=== PATIENT | female | born 1960 | race Caucasian/White ===

== ENCOUNTER 2020-10-14 07:05 | Outpatient (NON) | payer MEDICAID, SELFPAY ==
[2020-10-14 19:11] LABS: SARS-CoV-2 RNA PCR Positive
== END 2020-10-14 07:06 ==
LOC: ANHCOVIDDT 07:20
PROVIDERS: Visit Provider Internal Medicine Critical Care Medicine
DX: U07.1 COVID-19 (principal)
CPT/HCPCS: 87635; C9803; U0003

== ENCOUNTER 2020-11-22 10:25 | Outpatient (CLI) | payer OTHER, MEDICAID, SELFPAY ==
[2020-11-22 11:13] LABS: Cholesterol 197 mg/dL (0-200); HDL Direct 42 mg/dL; Triglycerides 159 mg/dL (<150)
[2020-11-22 11:24] LABS: LDL Cholesterol Direct 118 mg/dL
[2020-11-22 11:25] LABS: Creatinine Urine 147.2 mg/dL
[2020-11-22 12:13] LABS: MALB Creatinine Ratio 723.5 mg/g (0-30)
== END 2020-11-22 10:26 | disposition home or self-care (01) ==
PROVIDERS: PCP Family Medicine; Visit Provider Internal Medicine Endocrinology, Diabetes & Metabolism
DX: E11.29 Type 2 diabetes mellitus with other diabetic kidney complication (principal); E78.5 Hyperlipidemia, unspecified; E88.81 Metabolic syndrome and other insulin resistance; R80.9 Proteinuria, unspecified
CPT/HCPCS: 36415; 80061; 82043

== ENCOUNTER 2021-01-04 09:54 | Emergency (ER) | payer BC, SELFPAY ==
--- NOTE | ~2021-01-04 | CT_ITS ---
EXAMINATION: CT abdomen pelvis w con EXAM DATE: 01/04/2021 11:08 INDICATION: Right lower quadrant intermittent pain. TECHNIQUE: Spiral CT of the abdomen and pelvis was performed following intravenous injection of 100 m L Omnipaque 350. Axial, coronal and sagittal images were reviewed. The dose-length product (DLP) fo r this examination was 1353.53 mGy-cm. The exposure was tailored according to patient size (auto mA exposure control), and iterative reconstruction (ASIR) was used as additional dose reduction techniqu e. There is no prior study for comparison. FINDINGS: Bilateral adrenal gland nodularity, more on the left side which probably has several lesion s probably adenomas correlate with a prior noncontrast CT. Splenic granulomas. Liver and pancreas are unremarkable. There are cholecystectomy clips. Portal and splenic veins are patent. Kidneys enhan ce symmetrically. There is no hydronephrosis. The uterus is not identified and has likely been lisset gically resected. The bladder is undistended at time of imaging. There is no retroperitoneal or pel angela lymphadenopathy. There is mild scattered arteriosclerotic disease. Suspect anterior abdominal w all mesh, hernia repair. The appendix is normal. The stomach and small bowel are unremarkable. There is expected amount of c olonic stool. No free intraperitoneal gas. The heart is normal in size. There are no pericardial or pleural effusions. Left lower lobe calcified granuloma. There are no osteoblastic or osteolytic lesions identified. There is right hip replacement. Bilateral sacral osteoarthritis. Lumbar spondylo sis. IMPRESSION: 1. No acute intra-abdominal findings. 2. Adrenal adenomas or hyperplasia. 3. Surgical changes. Reviewed, dictated and finalized at location B. [employer]
--- NOTE | 2021-01-04 10:14 | ED.ABDPAIN ---
HPI - Abdominal Pain General Chief Complaint: Abdominal Pain Stated Complaint: Right Flank Pain Time Seen by Provider: 01/04/21 10:02 History of Present Illness HPI narrative: Intermittent RLQ pain for the past 2 weeks. Increasing in frequency and severity. Yesterday developed nausea ansd vomiting as well. On arrival here pain is minimal and she has no nausea. She denies ever having these symptoms before. She reports that she has a h/o kidney problems due to reflux. No fever, dysuria, hematuria, diarrhea, constipation. Related Data Allergies Allergy/AdvReac Type Severity Reaction Status Date / Time No Known Allergies Allergy Unknown Verified 10/10/20 10:07 Review of Systems Review of Systems: All systems reviewed & are unremarkable except as noted in HPI and below Constitutional: Constitutional: Denies fever(s) and Denies weakness Eyes: Eyes: Reports no additional eye complaints Cardiovascular: Cardiovascular: Denies chest pain Respiratory: Respiratory: Denies dyspnea Gastrointestinal: Gastrointestinal: Reports abdominal pain, Denies constipation, Denies diarrhea, Reports nausea and Reports vomiting Genitourinary: Genitourinary: Denies hematuria, Denies nocturia and Denies dysuria Musculoskeletal: Musculoskeletal: Denies back pain Integumentary/Breasts: Skin/Breast: Reports system reviewed and no additional complaints, except as docu Neurologic: Denies dizziness and Denies weakness [facility] Past Medical History Medical History (Updated 01/05/21 @ 00:00 by Chente Durant) Chronic obstructive pulmonary disease, unspecified Essential (primary) hypertension Hypoxemia IDDM (insulin dependent diabetes mellitus) Type 2 diabetes mellitus with hyperglycemia Surgical History Surgical History (Updated 01/04/21 @ 10:18 by Lowell Saunders MD) H/O shoulder surgery History of cholecystectomy Family History Family History Father Family history of heart disease in male family member before age 55 Depression Cerebrovascular accident, Onset Age: 76 Family history of arthritis Family history of cardiovascular disease, Onset Age: 76 Mother Family history of heart disease in male family member before age 55 Hypertension Asthma Family history of chronic obstructive pulmonary disease Family history of diabetes mellitus in first degree relative Family history of lung disease Family history of atrial fibrillation Diabetes mellitus, Onset Age: 79 Family history of cardiovascular disease, Onset Age: 79 Other Family history of allergic disorder Family history of congenital heart disease Family history of coronary artery disease Family history of malignant neoplasm of gastrointestinal tract Social History Social History Years smoked: 10 Smoking status: Former smoker Smoking end date: 11/11/02 Alcohol intake: never 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[employer] Exam Const: General: no acute distress and alert Nutritional Appearance: obese Orientation/consciousness: patient oriented x3 HENMT: Head: normal to inspection Resp: Effort & Inspection: normal respiratory effort Auscultation: clear to auscultation bilaterally Cardio: Rate: regular rate Rhythm: regular rhythm GI: GI Palp: Yes Soft to palpation and No Tenderness to palpation present (GI) Skin: General skin exam: normal color Neuro: General: patient oriented x3, moves all extremities, no focal motor deficits and CN's II-XI intact bilaterally Speech: normal speech Gait exam (Neuro): Normal gait present Extrem: General: edema bilateral (mild) Course Vital Signs Vital signs: Vital Signs Temperature 36.7 C 01/04/21 10:15 Pulse Rate 94 01/04/21 10:15 Respiratory Rate 14 01/04/21 10:15 Blood Pressure 151/64 H 01/04/21 10:15 Pulse Oximetry 98 01/04
[2021-01-04 10:15] VITALS: BP 151/64; PULSE 94; RESP 14; TEMP 36.7; O2SAT 98
[2021-01-04 10:34] LABS: Basophils Percent Auto 0.2 % (0.2-1.2); Eosinophils Absolute Auto 0.1 K/mm3 (0-0.3); Eosinophils Percent Auto 0.6 % (0-4.4); Hematocrit 43.1 % (37.0-47.0); Hemoglobin 14.2 g/dL (12.0-15.0); Immature Granulocyte Absolute 0.09 K/mm3 (0.00-0.031); Immature Granulocyte Percent A 0.5 % (0-0.5); Lymphocytes Absolute Auto 2.46 K/mm3 (0.9-3.2); Lymphocytes Percent Auto 14.5 % (18.3-44.2); Mean Corpuscular HGB Conc 32.9 g/dl (32-36); Mean Corpuscular Hemoglobin 28.2 pg (26-34); Mean Corpuscular Volume 85.5 fl (80-100); Mean Platelet Volume 9.9 fl (7.4-10.4); Monocytes Absolute Auto 0.5 K/mm3 (0.1-0.6); Monocytes Percent Auto 2.8 % (2.6-8.5); Neutrophils Absolute Auto 13.8 K/mm3 (1.3-6.7); Neutrophils Percent Auto 81.4 % (45.5-73.1); Platelet Count Result 314 k/mm3 (150-375); Red Blood Count 5.04 M/mm3 (4.2-5.4); Red Cell Distribution Width 13.3 % (11.5-14.5); White Blood Count 16.9 K/mm3 (4.5-10.0)
[2021-01-04 10:44] LABS: Add Urine Microscopic? YES; Appearance Urine Clear (Clear); Bacteria Urine Trace /hpf; Bilirubin Urine Negative (Negative); Blood Urine Negative (Negative); Color Urine Yellow (Yellow); Glucose Urine UA Negative (Negative); Ketones Urine Trace mg/dL (Negative); Leukocyte Esterase Ur Negative LEU/UL (Negative); Mucus Urine Moderate /lpf; Nitrate Urine Negative (Negative); Protein Urine 3+ mg/dL (Negative); Specific Grav Ur 1.024 (1.001-1.035); Squamous Epithelial Cell Urine Few /hpf (Few); Urobilinogen Urine Negative mg/dL (<2.0); WBC Urine 0-3 /hpf
[2021-01-04 11:02] LABS: Estimated CRCL calculation 81 ml/min; Estimated Glomerular Filt Rate > 60
[2021-01-04 11:11] LABS: Alanine Aminotransferase 19 U/L (4-35); Albumin Level 4.1 g/dL (3.5-5.1); Alkaline Phosphatase 105 U/L (38-126); Anion Gap 7 mmol/L (8-16); Aspartate Amino Transferase 22 U/L (14-36); Bilirubin,Total 0.5 mg/dL (0.2-1.3); Blood Urea Nitrogen 23 mg/dL (7-17); Calcium 9.9 mg/dL (8.4-10.2); Carbon Dioxide 29 mmol/L (22-30); Chloride 101 mmol/L (98-107); Estimated CRCL calculation 66 ml/min; Estimated Glomerular Filt Rate 56; Glucose 224 mg/dL (65-105); Lipase 233 U/L (23-300); Sodium 137 mmol/L (137-145)
[2021-01-04 12:06] VITALS: BP 152/76; PULSE 84; RESP 16; O2SAT 98
== END 2021-01-04 12:21 | disposition home or self-care (01) ==
PROVIDERS: Emergency Provider Emergency Medicine; PCP Family Medicine
DX: R10.31 Right lower quadrant pain (principal); J44.9 Chronic obstructive pulmonary disease, unspecified; I10 Essential (primary) hypertension; E11.9 Type 2 diabetes mellitus without complications; Z79.4 Long term (current) use of insulin
CPT/HCPCS: 36415; 74177; 80053; 81001; 83690; 85025; 99284; Q9967

== ENCOUNTER 2021-04-23 17:46 | Emergency (ER) | payer BC, SELFPAY ==
[2021-04-23 17:54] VITALS: BP 163/81; PULSE 83; RESP 16; TEMP 36.3; O2SAT 96
--- NOTE | 2021-04-23 18:04 | ED.URI ---
HPI - URI/Sore Throat General Chief Complaint: Upper Respiratory Infection Stated Complaint: Sore Throat,Congestion Time Seen by Provider: 04/23/21 18:04 Source: patient, RN notes reviewed and old records reviewed Mode of arrival: ambulatory Limitations: no limitations History of Present Illness HPI Narrative: 60 year old female who presents to [facility] care with 2 day history of cough, sore throat, seasonal allergies, left ear pain, sinus drainage and congestion. Patient states that she had COVID in October of 2020, did not require hospitalization. Patient states that she is run down just had this week for son and was around a lot of people at services.Patient states that she has been taling Nyquil, Advil, throat and nasal spray for her symptoms. Patient states history of seasonal allergies and COPD and sleep apnea for which she wears BiPAP at night. Patient states that she has some headache discomfort and has a lot of nasal congestion and drainage MD elicited complaint: cough and sore throat Pertinent past history: COPD Onset (ago): day(s) (2) Consistency: progressively worsening Description of mucous: watery Exacerbating factors: swallowing Relieving factors: nothing Associated symptoms: rhinorrhea, nasal congestion, sore throat, cough and other (left ear) Treatments prior to arrival: ibuprofen, cold medicine and other (throat spray and nasal spray) Related Data Allergies Allergy/AdvReac Type Severity Reaction Status Date / Time No Known Allergies Allergy Unknown Verified 03/10/21 10:16 Review of Systems Review of Systems: Narrative: CONSTITUTIONAL: Denies known fever, chills, or sweats. EYES: Denies visual changes, redness, or discharge. ENT: Positive for rhinorrhea, congestion, sore throat,and left otalgia. CARDIOVASCULAR: Denies chest pain, palpitations, or edema. RESPIRATORY: Positive cough or dyspnea.TAYLOR GASTROINTESTINAL: Denies abdominal pain, nausea, vomiting, or diarrhea. GENITOURINARY: Denies dysuria or hematuria. SKIN: Denies rash or itching. MUSCULOSKELETAL: Denies back pain, joint pain, or myalgia. NEUROLOGIC: Positive headache, numbness, or weakness. PSYCHIATRIC: Denies any history of anxiety or depression, just buried her son a few days ago All systems reviewed & are unremarkable except as noted in HPI and below PMFSH Past Medical History Medical History Chronic obstructive pulmonary disease, unspecified Essential (primary) hypertension Hypoxemia IDDM (insulin dependent diabetes mellitus) Type 2 diabetes mellitus with hyperglycemia Surgical History Surgical History H/O shoulder surgery History of cholecystectomy Family History Family History Father Family history of heart disease in male family member before age 55 Depression Cerebrovascular accident, Onset Age: 76 Family history of arthritis Family history of cardiovascular disease, Onset Age: 76 Mother Family history of heart disease in male family member before age 55 Hypertension Asthma Family history of chronic obstructive pulmonary disease Family history of diabetes mellitus in first degree relative Family history of lung disease Family history of atrial fibrillation Diabetes mellitus, Onset Age: 79 Family history of cardiovascular disease, Onset Age: 79 Other Family history of allergic disorder Family history of congenital heart disease Family history of coronary artery disease Family history of malignant neoplasm of gastrointestinal tract Social History Social History (Updated 04/28/21 @ 12:41 by Latasha Chawla NP) Years smoked: 10 Smoking status: Former smoker Smoking end date: 11/11/02 Alcohol intake: never Substance use: never Additional occupation/education comments: [employer]
== END 2021-04-23 18:48 | disposition home or self-care (01) ==
PROVIDERS: Emergency Provider Registered Nurse; PCP Family Medicine
DX: J06.9 Acute upper respiratory infection, unspecified (principal); R05 Cough; R09.89 Other specified symptoms and signs involving the circulatory and respiratory systems; Z87.891 Personal history of nicotine dependence; J44.9 Chronic obstructive pulmonary disease, unspecified; I10 Essential (primary) hypertension; E11.9 Type 2 diabetes mellitus without complications; Z86.16 Personal history of COVID-19
CPT/HCPCS: 87081; 87880; 99213; G0463

== ENCOUNTER 2021-06-01 10:43 | Outpatient (CLI) | payer BC, SELFPAY ==
[2021-06-01 17:42] LABS: Anion Gap 9 mmol/L (8-16); Blood Urea Nitrogen 18 mg/dL (7-17); Calcium 10.1 mg/dL (8.4-10.2); Carbon Dioxide 25 mmol/L (22-30); Chloride 102 mmol/L (98-107); Cholesterol 146 mg/dL (0-200); Estimated Glomerular Filt Rate > 60; Glucose 241 mg/dL (65-110); HDL Direct 58 mg/dL; Potassium 4.7 mmol/L (3.4-5.0); Sodium 136 mmol/L (137-145); Triglycerides 140 mg/dL (<150)
[2021-06-01 17:53] LABS: LDL Cholesterol Direct 62 mg/dL
== END 2021-06-01 10:44 | disposition home or self-care (01) ==
LOC: ANHWCLAB 10:45
PROVIDERS: PCP Family Medicine; Visit Provider Internal Medicine Endocrinology, Diabetes & Metabolism
DX: E11.65 Type 2 diabetes mellitus with hyperglycemia (principal); Z79.4 Long term (current) use of insulin
CPT/HCPCS: 36415; 80048; 80061

== ENCOUNTER 2022-02-07 16:10 | Emergency (ER) | payer BC, SELFPAY ==
--- NOTE | ~2022-02-07 | XR_ITS ---
EXAMINATION: XR wrist LT min 3V DATE: 02/07/2022 16:49 INDICATION: Left wrist swelling. Injury. TECHNIQUE: 4 views of left wrist were obtained. COMPARISON: Left hand radiograph 04/03/2019 FINDINGS: There is volar tilt of lunate, consistent with volar intercalated segmental instability. Th ere is mild osteoarthritis of triscaphe joint and moderate osteoarthritis of first carpometacarpal roni int. There is mild osteoarthritis of first-third metacarpophalangeal joints and some of the interphal angeal joints. IMPRESSION: 1. 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 Reviewed, dictated and finalized at location A.
[2022-02-07 16:35] VITALS: BP 174/84; PULSE 88; RESP 18; TEMP 36.3; O2SAT 97
--- NOTE | 2022-02-07 17:00 | ED.UPPEXIN ---
HPI - Extremity Injury (Upper) General Chief Complaint: Extremity Injury, Upper Stated Complaint: left wrist pain Time Seen by Provider: 02/07/22 17:01 Source: patient Mode of arrival: ambulatory Limitations: no limitations History of Present Illness HPI narrative: 61-year-old female presents with pain and swelling to left wrist. Patient reports that she was trying to give her son's dog a bath, and he pulled on her left wrist. States that she has pain to radial aspect with posterior swelling noted. Decreased flexion and extension. Distal neurovascular intact. Patient is right-hand dominant. All systems reviewed and negative except as noted above. Related Data Allergies Allergy/AdvReac Type Severity Reaction Status Date / Time No Known Allergies Allergy Unknown Verified 02/07/22 17:04 Review of Systems Review of Systems: CONSTITUTIONAL: Denies fever, chills, or sweats. EYES: Denies visual changes, redness, or discharge. ENT: Denies rhinorrhea, congestion, sore throat, or otalgia. CARDIOVASCULAR: Denies chest pain, palpitations, or edema. RESPIRATORY: Denies cough or dyspnea. GASTROINTESTINAL: Denies abdominal pain, nausea, vomiting, or diarrhea. GENITOURINARY: Denies dysuria or hematuria. SKIN: Denies rash or itching. MUSCULOSKELETAL: Denies back pain, joint pain, or myalgia. Reports pain to left wrist with swelling. NEUROLOGIC: Denies headache, numbness, or weakness. PSYCHIATRIC: Denies anxiety or depression. All other systems reviewed are negative, except as documented in HPI. [facility] Past Medical History Medical History (Updated 02/07/22 @ 17:12 by Aria Recinos NP) Chronic obstructive pulmonary disease, unspecified Daytime somnolence Depression Essential (primary) hypertension Hypoxemia IDDM (insulin dependent diabetes mellitus) Moderately increased albuminuria Type 2 diabetes mellitus with hyperglycemia Surgical History Surgical History H/O shoulder surgery History of cholecystectomy Family History Family History Father Family history of heart disease in male family member before age 55 Depression Cerebrovascular accident, Onset Age: 76 Family history of arthritis Family history of cardiovascular disease, Onset Age: 76 Mother Family history of heart disease in male family member before age 55 Hypertension Asthma Family history of chronic obstructive pulmonary disease Family history of diabetes mellitus in first degree relative Family history of lung disease Family history of atrial fibrillation Diabetes mellitus, Onset Age: 79 Family history of cardiovascular disease, Onset Age: 79 Other Family history of allergic disorder Family history of congenital heart disease Family history of coronary artery disease Family history of malignant neoplasm of gastrointestinal tract Social History Social History Years smoked: 10 Smoking status: Former smoker Smoking end date: 11/11/02 Alcohol intake: never Substance use: never Additional occupation/education comments: [employer] Gender identity (if verbalized by the patient): Female Comments At time of signature, agree with nursing past medical, surgical, social and family history. There is no relevant family history pertinent to the presenting complaint. Exam Narrative: GENERAL: This is a well-nourished, well-developed patient, in no apparent distress. HEAD: normocephalic, atraumatic. EYES: PERRL. Sclera clear/white. Vision is grossly intact. EARS: External ears normal NOSE: External nose normal THROAT: Mucous membranes moist NECK: Neck supple, non-tender without lymphadenopathy, masses or thyromegaly. CARDIOVASCULAR: Regular rate and rhythm without murmurs, gallops, or rubs. RESPIRATORY: Clear to auscul
== END 2022-02-07 17:17 | disposition home or self-care (01) ==
PROVIDERS: Emergency Provider Nurse Practitioner Family
DX: M25.332 Other instability, left wrist (principal); S63.502A Unspecified sprain of left wrist, initial encounter; X58.XXXA Exposure to other specified factors, initial encounter; J44.9 Chronic obstructive pulmonary disease, unspecified; I10 Essential (primary) hypertension; E11.9 Type 2 diabetes mellitus without complications
CPT/HCPCS: 73110; 99213; G0463

== ENCOUNTER 2022-11-17 13:08 | Emergency (ER) | payer MEDICARE, MEDICAID, SELFPAY ==
--- NOTE | 2022-11-17 13:17 | ED.EXTPRO ---
HPI - Extremity Problem General Chief complaint: Extremity Injury, Lower Stated complaint: Right Ankle Pain Time Seen by Provider: 11/17/22 13:18 Source: patient, RN notes reviewed and old records reviewed Mode of arrival: ambulatory Limitations: no limitations History of Present Illness HPI Narrative: 62-year-old female presents to the [facility] with right ankle pain, right calf strain as well as increased swelling. Patient states that she was letting her dog when she was walking downstairs and the stair broke. Unsure how she injured her leg. States the swelling has been going on a couple of days, very dry flaky skin noted. Redness noted Patient is diabetic, history of COPD, high cholesterol Related Data Allergies Allergy/AdvReac Type Severity Reaction Status Date / Time No Known Allergies Allergy Unknown Verified 11/17/22 13:13 Review of Systems Review of Systems: All systems reviewed & are unremarkable except as noted in HPI and below Constitutional: Constitutional: Reports no additional constitutional complaints Eyes: Eyes: Reports no additional eye complaints ENT: Reports system reviewed and no additional complaints, except as documented Cardiovascular: Cardiovascular: Reports no additional cardiovascular complaints, Denies chest pain and Denies dyspnea Respiratory: Respiratory: Reports no additional respiratory complaints, Denies chest congestion, Denies cough and Denies dyspnea Gastrointestinal: Gastrointestinal: Reports no additional gastrointestinal complaints, Denies abdominal pain, Denies nausea and Denies vomiting Musculoskeletal: Musculoskeletal: Reports as per HPI and Reports arthralgias (Right ankle) Comments: Right lower leg edema Integumentary/Breasts: Skin/Breast: Reports system reviewed and no additional complaints, except as docu Neurologic: Reports system reviewed and no additional complaints, except as documented Psychiatric: Psychiatric: Reports no additional psychiatric complaints Allergic/Immunologic: Allergic/Immunologic: Reports no additional allergic/immunologic complaints [facility] Past Medical History Medical History Chronic obstructive pulmonary disease, unspecified Daytime somnolence Depression Essential (primary) hypertension Hypoxemia IDDM (insulin dependent diabetes mellitus) Moderately increased albuminuria Type 2 diabetes mellitus with hyperglycemia Surgical History Surgical History H/O shoulder surgery History of cholecystectomy Family History Family History Father Family history of heart disease in male family member before age 55 Depression Cerebrovascular accident, Onset Age: 76 Family history of arthritis Family history of cardiovascular disease, Onset Age: 76 Mother Family history of heart disease in male family member before age 55 Hypertension Asthma Family history of chronic obstructive pulmonary disease Family history of diabetes mellitus in first degree relative Family history of lung disease Family history of atrial fibrillation Diabetes mellitus, Onset Age: 79 Family history of cardiovascular disease, Onset Age: 79 Other Family history of allergic disorder Family history of congenital heart disease Family history of coronary artery disease Family history of malignant neoplasm of gastrointestinal tract Social History Social History Years smoked: 10 Smoking status: Former smoker Smoking end date: 11/11/02 Alcohol intake: never Substance use: never 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 Gender identity (if verbalized by the patient): Female Comments At the time of my signature, I reviewed and agree with the nursing past medical, surgical, soci
[2022-11-17 13:20] VITALS: BP 172/70; PULSE 74; RESP 20; TEMP 36.8; O2SAT 98
== END 2022-11-17 13:26 | disposition short-term general hospital (02) ==
PROVIDERS: Emergency Provider Nurse Practitioner; PCP Family Medicine
DX: R22.41 Localized swelling, mass and lump, right lower limb (principal); Z87.891 Personal history of nicotine dependence; J44.9 Chronic obstructive pulmonary disease, unspecified; I10 Essential (primary) hypertension; E11.9 Type 2 diabetes mellitus without complications; Z79.4 Long term (current) use of insulin
CPT/HCPCS: 99212; G0463

== ENCOUNTER 2022-11-17 13:49 | Emergency (ER) | payer MEDICARE, MEDICAID, SELFPAY ==
--- NOTE | ~2022-11-17 | XR_ITS ---
XR ankle RT min 3V 11/17/2022 14:18 Indication: Right ankle pain after injury Procedure: 4 views right ankle Comparison: No prior studies for comparison. Findings: No acute fracture, subluxation or dislocation. There is advanced osteoarthritis of the midf oot. Ankle mortise intact. Talar dome is normal. Small degenerative calcaneal enthesophyte at the cristian ntar surface. No foreign bodies. Impression: 1: No acute fracture. Reviewed, dictated and finalized at location A. ALLERGY Impression: 1: No acute fracture.
[2022-11-17 13:49] VITALS: BP 178/71; PULSE 98; RESP 16; TEMP 36.4; O2SAT 97
--- NOTE | 2022-11-17 15:34 | ED.LOWEXIN ---
HPI - Extremity Injury (Lower) General Chief Complaint: Extremity Injury, Lower Stated Complaint: RLE pain Time Seen by Provider: 11/17/22 14:46 History of Present Illness HPI Narrative: Patient is a 62-year-old female here for evaluation of right ankle pain and swelling after landing on it in inversion earlier today. No head injury or loss of consciousness. Patient presented to an urgent care facility who was referred to the ED because they do not have x-ray technicians and also noticed that her right lower extremity was swollen. Patient tells me that she has lymphedema since she was 9 months old and her right lower extremity is chronically swollen. Denies redness or pain in her calf, history of blood clots. Patient has been able to ambulate on the leg since the fall but is states it is painful. Has not attempted any medicine for pain. Related Data Allergies Allergy/AdvReac Type Severity Reaction Status Date / Time No Known Allergies Allergy Unknown Verified 11/17/22 13:13 Review of Systems Review of Systems: Gen: Denies fevers or chills Eyes: Denies eye pain or visual change ENT: Denies congestion Respiratory: Denies shortness of breath or cough CV: Denies chest pain or palpitations GI: Denies abdominal pain nausea, emesis or diarrhea : denies burning, urgency, frequency or hematuria Musculoskeletal: Reports right leg pain Neuro: Denies numbness, tingling, weakness or focal weakness Skin: Denies rash Except as documented, all other systems reviewed and negative [facility] Past Medical History Medical History Chronic obstructive pulmonary disease, unspecified Daytime somnolence Depression Essential (primary) hypertension Hypoxemia IDDM (insulin dependent diabetes mellitus) Moderately increased albuminuria Type 2 diabetes mellitus with hyperglycemia Surgical History Surgical History H/O shoulder surgery History of cholecystectomy Family History Family History Father Family history of heart disease in male family member before age 55 Depression Cerebrovascular accident, Onset Age: 76 Family history of arthritis Family history of cardiovascular disease, Onset Age: 76 Mother Family history of heart disease in male family member before age 55 Hypertension Asthma Family history of chronic obstructive pulmonary disease Family history of diabetes mellitus in first degree relative Family history of lung disease Family history of atrial fibrillation Diabetes mellitus, Onset Age: 79 Family history of cardiovascular disease, Onset Age: 79 Other Family history of allergic disorder Family history of congenital heart disease Family history of coronary artery disease Family history of malignant neoplasm of gastrointestinal tract Social History Social History Years smoked: 10 Smoking status: Former smoker Smoking end date: 11/11/02 Alcohol intake: never Substance use: never 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 CARDIOVASCULAR: Regular rate and rhythm without murmurs rubs or gallops. ABDOMINAL: Soft, nontender, nondistended, no rebound or guarding MUSCULOSKELETAL: Right lower extremity has nonpitting edema from the knee to the foot. No erythema or tenderness to the calf. Tenderness to palpation along medial malleolus; no deformity. FROM in foot and lower leg. Extremities are warm and well perfused. NEURO: Awake and alert. Fol
--- NOTE | 2022-11-17 16:19 | PC.NURSE ---
Patient states she is driving home following discharge, [place] administration held. Patient states she will take Tylenol.
== END 2022-11-17 16:46 | disposition home or self-care (01) ==
PROVIDERS: Emergency Provider Physician Assistant; PCP Family Medicine
DX: S93.401A Sprain of unspecified ligament of right ankle, initial encounter (principal); J44.9 Chronic obstructive pulmonary disease, unspecified; I10 Essential (primary) hypertension; E11.9 Type 2 diabetes mellitus without complications; I89.0 Lymphedema, not elsewhere classified; Z87.891 Personal history of nicotine dependence; Z79.84 Long term (current) use of oral hypoglycemic drugs; Z79.4 Long term (current) use of insulin; X50.9XXA Other and unspecified overexertion or strenuous movements or postures, initial encounter
CPT/HCPCS: 73610; 99283

== ENCOUNTER 2022-12-09 15:05 | Emergency (ER) | payer MEDICARE, MEDICAID, SELFPAY ==
[2022-12-09 15:19] VITALS: BP 149/76; PULSE 87; RESP 16; TEMP 36.3; O2SAT 95
--- NOTE | 2022-12-09 15:39 | ED.GENADULT ---
HPI - General Adult General Chief complaint: Upper Respiratory Infection Stated complaint: cold sx Time Seen by Provider: 12/09/22 15:39 Source: patient, RN notes reviewed and old records reviewed Mode of arrival: ambulatory Limitations: no limitations History of Present Illness HPI narrative: 62-year-old female presents to the [facility] with complaints of 2 days of congestion. Recently exposed to COVID on 04 December. No treatment prior to arrival Onset (ago): day(s) (2) Related Data Allergies Allergy/AdvReac Type Severity Reaction Status Date / Time No Known Allergies Allergy Unknown Verified 12/09/22 15:15 Review of Systems Review of Systems: All systems reviewed & are unremarkable except as noted in HPI and below Constitutional: Constitutional: Reports no additional constitutional complaints Eyes: Eyes: Reports no additional eye complaints ENT: Reports as per HPI Cardiovascular: Cardiovascular: Reports no additional cardiovascular complaints, Denies chest pain and Denies dyspnea Respiratory: Respiratory: Reports no additional respiratory complaints, Denies chest congestion, Denies cough and Denies dyspnea Gastrointestinal: Gastrointestinal: Reports no additional gastrointestinal complaints, Denies abdominal pain, Denies nausea and Denies vomiting Musculoskeletal: Musculoskeletal: Reports no additional musculoskeletal complaints Integumentary/Breasts: Skin/Breast: Reports system reviewed and no additional complaints, except as docu Neurologic: Reports system reviewed and no additional complaints, except as documented Psychiatric: Psychiatric: Reports no additional psychiatric complaints Allergic/Immunologic: Allergic/Immunologic: Reports no additional allergic/immunologic complaints PMFSH Past Medical History Medical History Chronic obstructive pulmonary disease, unspecified Daytime somnolence Depression Essential (primary) hypertension Hypoxemia IDDM (insulin dependent diabetes mellitus) Moderately increased albuminuria Type 2 diabetes mellitus with hyperglycemia Surgical History Surgical History H/O shoulder surgery History of cholecystectomy Family History Family History Father Family history of heart disease in male family member before age 55 Depression Cerebrovascular accident, Onset Age: 76 Family history of arthritis Family history of cardiovascular disease, Onset Age: 76 Mother Family history of heart disease in male family member before age 55 Hypertension Asthma Family history of chronic obstructive pulmonary disease Family history of diabetes mellitus in first degree relative Family history of lung disease Family history of atrial fibrillation Diabetes mellitus, Onset Age: 79 Family history of cardiovascular disease, Onset Age: 79 Other Family history of allergic disorder Family history of congenital heart disease Family history of coronary artery disease Family history of malignant neoplasm of gastrointestinal tract Social History Social History Years smoked: 10 Smoking status: Former smoker Smoking end date: 11/11/02 Alcohol intake: never Substance use: never Living arrangements: alone Occupation/Education: occupation 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 There is no relevant family history pertinent to the patient complaint. Exam Const: General: cooperative, healthy appearing, comfortable, no acute distress, well developed, alert and well nourished Nutritional Appearance: well nouris
== END 2022-12-09 15:56 | disposition home or self-care (01) ==
PROVIDERS: Emergency Provider Nurse Practitioner
DX: U07.1 COVID-19 (principal); J44.9 Chronic obstructive pulmonary disease, unspecified; I10 Essential (primary) hypertension; E11.9 Type 2 diabetes mellitus without complications; Z79.4 Long term (current) use of insulin; Z79.84 Long term (current) use of oral hypoglycemic drugs; Z87.891 Personal history of nicotine dependence
CPT/HCPCS: 87426; 99213; C9803; G0463

== ENCOUNTER 2023-07-26 14:56 | Emergency (ER) | payer MEDICARE, MEDICAID, SELFPAY ==
[2023-07-26 15:11] VITALS: BP 185/83; PULSE 89; RESP 20; TEMP 36.8; O2SAT 98
--- NOTE | 2023-07-26 15:15 | ED.GENADULT ---
HPI - General Adult General Chief complaint: Upper Respiratory Infection Stated complaint: vomiting,difficulty breathing. Spot on nose Time Seen by Provider: 07/26/23 15:52 Source: patient and RN notes reviewed Mode of arrival: ambulatory Limitations: no limitations History of Present Illness HPI narrative: 62-year-old female presents with concern of for 1-2 day history of general malaise cough, shortness of breath with activity. She reports she has had 2 episodes of vomiting. She reports history of COPD, she has used her nebulizer without relief. He denies fever, aches, chills, sweats MD complaint: Cough Related Data Home Medications Medication Instructions Recorded Confirmed cetirizine 10 mg capsule (Zyrtec) 10 mg PO DAILY 02/13/23 07/26/23 fluticasone propionate 50 1 spray intranasal DAILY 02/13/23 07/26/23 mcg/actuation nasal spray,suspension (Flonase Allergy Relief) Allergies Allergy/AdvReac Type Severity Reaction Status Date / Time No Known Allergies Allergy Unknown Verified 07/26/23 15:38 Review of Systems Review of Systems: CONSTITUTIONAL: Denies malaise, chills, sweats, or fever. EYES: Denies visual changes, redness, or discharge. ENT: Reports rhinorrhea, congestion. Denies sinus pain, otalgia and sore throat. CARDIOVASCULAR: Denies chest pain, palpitations, or edema. RESPIRATORY: Reports cough, exertional dyspnea. GASTROINTESTINAL: Denies abdominal pain, diarrhea. Reports nausea and vomiting SKIN: Denies rash or itching. MUSCULOSKELETAL: Denies myalgia. NEUROLOGIC: Denies headache. All systems reviewed & are unremarkable except as noted in HPI and below PMFSH Past Medical History Medical History Chronic obstructive pulmonary disease, unspecified COVID-19 Daytime somnolence Depression Essential (primary) hypertension Hypoxemia IDDM (insulin dependent diabetes mellitus) Moderately increased albuminuria Type 2 diabetes mellitus with hyperglycemia Surgical History Surgical History H/O shoulder surgery History of cholecystectomy History of hysterectomy Status post left hip replacement Family History Family History Father Family history of heart disease in male family member before age 55 Depression Cerebrovascular accident, Onset Age: 76 Family history of arthritis Family history of cardiovascular disease, Onset Age: 76 Mother Family history of heart disease in male family member before age 55 Hypertension Asthma Family history of chronic obstructive pulmonary disease Family history of diabetes mellitus in first degree relative Family history of lung disease Family history of atrial fibrillation Diabetes mellitus, Onset Age: 79 Family history of cardiovascular disease, Onset Age: 79 Other Family history of allergic disorder Family history of congenital heart disease Family history of coronary artery disease Family history of malignant neoplasm of gastrointestinal tract Social History Social History Years smoked: 10 Smoking status: Former smoker Smoking end date: 11/11/02 Alcohol intake: never Substance use: never Lack of Transportation: No Lack of Food: Never True Current Housing: I Have Housing Concerned About Future Housing: No Difficulty Paying Gas/Electric Bills: No Difficulty Paying for Meds: No Currently Unemployed: No Education: High School Diploma/GED Difficulty w/ Childcare or Family Care: No Living arrangements: alone Occupation/Education: occupation 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
== END 2023-07-26 16:14 | disposition home or self-care (01) ==
PROVIDERS: Emergency Provider Nurse Practitioner; PCP Family Medicine
DX: J44.1 Chronic obstructive pulmonary disease with (acute) exacerbation (principal); Z87.891 Personal history of nicotine dependence; I10 Essential (primary) hypertension; E11.9 Type 2 diabetes mellitus without complications; Z96.642 Presence of left artificial hip joint; Z86.16 Personal history of COVID-19; Z20.822 Contact with and (suspected) exposure to COVID-19
CPT/HCPCS: 87426; 87804; 99213; C9803; G0463